=== PATIENT | male | born 1970 | race Caucasian/White ===

== ENCOUNTER 2018-06-02 21:23 | Observation (INO) | payer OTHER, MEDICARE ==
[2018-06-02 22:11] LABS: Hemoglobin 7.1 g/dL (14.0-18.0); Mean Corpuscular HGB CONC 35.1 g/dL (32.0-36.0); Mean Corpuscular Hemoglobin 28.9 pg (27.0-31.0); Mean Corpuscular Volume 82.2 fL (78.0-98.0); Platelet Count 14 thou/uL (130-400); RBC Distribution Width 12.7 % (11.5-14.5); Red Blood Cell (RBC) Count 2.47 mill/uL (4.70-6.10); Reflex for Review?? YES; White Blood Cell (WBC) Count 0.5 thou/uL (4.8-10.8)
--- NOTE | 2018-06-02 22:24 | RAD ---
AP VIEW CHEST: 06/02/18 HISTORY: Shortness of breath. Patient with history of leukemia. AP view chest is obtained on 06/02/18. The lungs are well aerated. No evidence of active intrathoracic disease seen. No evidence of effusio ns, pneumonia or pneumothorax seen. Right upper extremity PICC line is seen in place. IMPRESSION: Unremarkable AP view chest. POS: [facility]
[2018-06-02 22:45] LABS: ALT (SGPT) 9 U/L (8-55); AST (SGOT) 7 U/L (5-34); Albumin 3.8 g/dL (3.5-5.0); Alkaline Phosphatase 123 U/L (40-150); Anion Gap 12 mmol/L (10-20); BUN (Urea Nitrogen) 10 mg/dL (8.9-20.6); Bilirubin, Total 0.4 mg/dL (0.2-1.2); Calc. Creatinine Clearance 0 mL/min (70-130); Carbon Dioxide 20 mmol/L (22-29); Chloride 107 mmol/L (98-107); Estimated GFR-MDRD Greater than 90; Globulin 2.5 g/dL (2.4-3.5); Glucose 116 mg/dL (70-105); Potassium 3.6 mmol/L (3.5-5.1); Protein, Total 6.3 g/dL (6.0-8.3); Sodium 135 mmol/L (136-145)
[2018-06-02] MEDS ORDERED: Ondansetron ODT 4 MG TAB PO PRN (23:37)
[2018-06-02] MEDS ORDERED: Voriconazole 50 MG TAB PO SCH (23:45)
[2018-06-02] MEDS ORDERED: carBAMazepine SR 300 mg Capsule PO SCH (23:45)
[2018-06-02] MEDS ORDERED: levETIRAcetam 500 MG TAB PO SCH (23:45)
[2018-06-02] MEDS ORDERED: Cyclobenzaprine 10 MG TAB PO SCH (23:45)
[2018-06-02] MEDS ORDERED: Allopurinol 300 MG TAB PO SCH (23:45)
[2018-06-02] MEDS ORDERED: valACYclovir 500 MG TAB PO SCH (23:45)
[2018-06-02] MEDS ORDERED: Topiramate 100 MG TAB PO SCH (23:45)
[2018-06-02] MEDS ORDERED: Citalopram 20 MG TAB PO SCH (23:45)
[2018-06-03] MEDS ORDERED: Senokot S 8.6-50 MG TAB PO PRN (00:26)
[2018-06-03] MEDS ORDERED: Calcium Carbonate 500 MG ChewTAB PO PRN (00:26)
[2018-06-03] MEDS ORDERED: Acetaminophen 325 MG TAB PO PRN (00:26)
--- NOTE | 2018-06-03 01:57 | HP ---
The patient was seen and examined on June 03, 2018. PRIMARY CARE PHYSICIAN: Out of [facility]. CHIEF COMPLAINT: Generalized weakness. HISTORY OF PRESENT ILLNESS: The patient is a 47-year-old male with colon cancer and leukemia, currently on chemotherapy, presented to the emergency room with above complaints. The patient is from [facility]. He was attending a wedding here. Over the last 24 hours, the patient has been feeling generally weak and fatigued. He also had some dry cough without significant production. He also had cold intolerance. He denies any petechiae, purpura, or fall. No fever or chills reported. No nausea, vomiting, diarrhea, or altered mentation reported. In the emergency room, his workup was consistent with WBC 0.5, hemoglobin 7.1, and platelet count of 14. Per the patient's report, his WBC counts are normally in this range. Platelets and red blood cell transfusion has been ordered in the emergency room. PAST MEDICAL HISTORY: 1. Leukemia, currently on chemotherapy. 2. History of colon cancer, status post colostomy. 3. History of TIAs. 4. Seizure disorder. 5. Depression, mild, stable. PAST SURGICAL HISTORY: 1. Colostomy. 2. Tonsillectomy. 3. PICC line placement. ALLERGIES: THE PATIENT IS ALLERGIC TO AMOXICILLIN AND MORPHINE. CURRENT HOME MEDICATIONS: Family to provide accurate list of medications. He is on several medications includin. Keppra. 2. Carbamazepine. 3. Allopurinol. 4. Valacyclovir. 5. Levaquin. 6. Citalopram. 7. Topamax. 8. Voriconazole. 9. Cyclobenzaprine. 10. Zofran. 11. Chemotherapy medications. SOCIAL HISTORY: The patient currently lives at home. He is a former smoker. Denies any alcohol or drug use. FAMILY HISTORY: Positive for diabetes mellitus type 2. REVIEW OF SYSTEMS: All other review of systems were reviewed and were found negative. PHYSICAL EXAMINATION: VITAL SIGNS: Vital signs in the emergency room showed temperature 98.4, respirations of 16, pulse of 91, blood pressure of 122/81 with O2 saturation of 100% on room air. GENERAL: A 47-year-old male, in no apparent distress. HEENT: Head, atraumatic and normocephalic. Sclerae are anicteric. Conjunctival pallor noted. No oral lesion. NECK: Supple. No JVD. No carotid bruit. LUNGS: Clear to auscultation bilaterally. No wheezing, rales, or rhonchi. HEART: S1 and S2 present. Regular rate and rhythm. No rubs or gallops appreciated. No significant murmurs. ABDOMEN: Soft, nontender. Bowel sounds are present. No rebound or guarding. No costovertebral angle tenderness. Colostomy noted. EXTREMITIES: No joint swelling or tenderness. NEUROLOGIC: Grossly nonfocal. Moves all 4 extremities. PSYCHIATRY: Alert, awake, and oriented x3. SKIN: Warm and dry. LYMPH NODES: No palpable lymph nodes in the neck. PERIPHERAL VASCULAR: Radial pulses palpable bilaterally. MUSCULOSKELETAL: No joint swelling or tenderness. LABORATORY DATA: Laboratory findings as discussed above. Chemistry showed sodium 135, potassium 3.9, chloride 107, bicarbonate 20, BUN 10, creatinine 0.81. Troponin was negative. BNP 31.1. IMAGING STUDIES: Chest x-ray by my review was negative for infiltrate. EKG by my review showed normal sinus rhythm with right bundle-branch block. IMPRESSION: 1. Generalized weakness with fatigue secondary to symptomatic anemia. 2. Thrombocytopenia with platelet of 14. 3. 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 4. Hyponatremia. 5. Mild metabolic acidosis. 6. Right bundle-branch block. 7. Seizure disorder. 8. Depression, mild, stable. 9. History of TIA, not a candidate for antiplatelet agent due to significant thrombocytopenia. 10. History of colon cancer, status post colostomy. 11. Former smoker. PLAN: The patient will be monitored as a 23-hour observation. He will receive 1 unit of PRBC as well as one pack platelet. Per the patient's report, his oncologist recommended platelet count over 30,000. His WBC count runs in this range per the patient's report. We will recheck labs in a.m. We will resume his home medications once confirmed. He is currently on Levaquin, voriconazole, as well as valacyclovir for prophylaxis. The patient can probably be discharged in the morning after his blood work check. He will also benefit from a basic metabolic profile as outpatient. Job ID: [id number]
[2018-06-03 08:10] LABS: Hemoglobin 7.9 g/dL (14.0-18.0); Mean Corpuscular HGB CONC 36.2 g/dL (32.0-36.0); Mean Corpuscular Hemoglobin 30.4 pg (27.0-31.0); Mean Corpuscular Volume 83.8 fL (78.0-98.0); RBC Distribution Width 13.1 % (11.5-14.5)
[2018-06-03] MEDS ORDERED: Ondansetron ODT 8 MG TAB PO PRN ×2 (08:13→09:00)
[2018-06-03 08:36] LABS: Mean Platelet Volume 9.9 fL (7.4-10.4); Platelet Count 30 thou/uL (130-400); White Blood Cell (WBC) Count 0.4 thou/uL (4.8-10.8)
[2018-06-03] MEDS ORDERED: carBAMazepine 200 MG TAB PO SCH ×2 (09:00)
[2018-06-03] MEDS ORDERED: DEFERASIROX PO SCH ×2 (09:00)
[2018-06-03] MEDS ORDERED: VENETOCLAX 100 MG PO SCH ×2 (09:00)
[2018-06-03] MEDS ORDERED: levETIRAcetam 500 MG TAB PO SCH ×2 (09:00)
[2018-06-03] MEDS ORDERED: Topiramate 100 MG TAB PO SCH (09:00)
[2018-06-03] MEDS ORDERED: Docusate 100 MG CAP PO SCH ×2 (09:00)
[2018-06-03] MEDS ORDERED: Voriconazole 50 MG TAB PO SCH (09:00)
[2018-06-03] MEDS ORDERED: valACYclovir 500 MG TAB PO SCH (09:00)
[2018-06-03] MEDS ORDERED: Citalopram 20 MG TAB PO SCH (09:00)
[2018-06-03] MEDS ORDERED: Allopurinol 300 MG TAB PO SCH (09:00)
[2018-06-03] MEDS ORDERED: Cyclobenzaprine 10 MG TAB PO SCH (09:00)
[2018-06-03 12:11] VITALS: BP 96/62; TEMP 97.5
--- NOTE | 2018-06-03 18:11 | DIS ---
DATE OF ADMISSION: 06/03/2018 DATE OF DISCHARGE: 06/03/2018 CONDITION AT THE TIME OF DISCHARGE: Stable and improved. PRIMARY CARE PHYSICIAN: Out of town in [place], [place]. DISCHARGE DISPOSITION: Home. DISCHARGE DIAGNOSES: 1. Generalized weakness with fatigue secondary to symptomatic anemia. 2. Anemia secondary to cancer chemotherapy. 3. Thrombocytopenia due to cancer chemotherapy. 4. Chronic leukopenia secondary to leukemia and chemotherapy. 5. Mild hyponatremia. 6. Mild metabolic acidosis. 7. Right bundle branch block. 8. History of seizure disorder. 9. History of transient ischemic attack. 10. History of colon cancer status post colostomy. 11. History of leukemia, currently on chemotherapy in [place] by Dr. Bell. DISCHARGE MEDICATION: Restart home medications. No changes were made. No new medications were prescribed. Discharge medications as follows; 1. Venclexta 100 mg p.o. b.i.d. 2. Topiramate 100 mg p.o. b.i.d. 3. Jadenu 90 mg p.o. b.i.d. 4. Zofran p.r.n. 5. Flexeril 10 mg p.o. p.r.n. 6. Voriconazole 50 mg p.o. b.i.d. 7. Dulcolax daily. 8. Citalopram 20 mg daily. 9. Valtrex 500 mg p.o. b.i.d. 10. Levofloxacin 1 tablet daily. 11. Allopurinol 300 mg daily. 12. Levetiracetam 3 tablets p.o. b.i.d. 13. Carbamazepine 3 tablets p.o. b.i.d. PROCEDURES DONE IN HOSPITAL: 1. Chest x-ray upon presentation, which is negative for any evidence of infiltrate. 2. PRBC transfusion, total of 2 units. HISTORY OF PRESENTING ILLNESS: Mr. Sanchez was admitted earlier this morning by my colleague, Dr. Dove. He is visiting out of town for vacation and was having some generalized weakness. He is a chemotherapy patient for his leukemia and is under care of Dr. Bell in [place]. Upon presentation to the emergency room, his WBC count was 0.5, hemoglobin 7.1, and platelet count of 14. He has had a chemotherapy session 10 days to 14 days prior to admission. He was admitted for further evaluation. He was otherwise hemodynamically stable. PRBC transfusion was ordered for him. Repeat labs were ordered for him. Please see admission history and physical for further details. HOSPITAL COURSE: The patient's symptoms resolve completely by the time his transfusion was done. He received total of 2 units of transfusion. His hemoglobin was 7.9 after 1 unit of transfusion and he is receiving 1 more unit after that. His WBC count remained 0.4, but his platelet count improved to 30 from 14. I discussed the discharge plan with the family and they reported that his white blood cell count has been running low since the diagnosis of leukemia. He has received some sort of WBC transfusion either in the form of Neupogen or Neulasta after his chemotherapy, but even that failed to improve his WBC count. His oncologist has told him that his WBC count always be low. The patient is not exhibiting any signs or symptoms of infection and is eager to go home and is hemodynamically stable. He has an upcoming appointment with his oncologist tomorrow in [place]. Discharge plan was discussed with the patient at this time, he feels comfortable and has no new complaints. He was seen and examined prior to discharge. PHYSICAL EXAMINATION: This morning; VITAL SIGNS: Temperature 97.5, respirations 18, pulse of 89, and blood pressure 96/62. GENERAL: No acute distress. Awake, alert, and oriented x3. CHEST: Clear to auscultation bilaterally. HEART: Rate rhythm is regular. EXTREMITIES: Free of any cyanosis, clubbing, or edema. He will be discharged after second unit of packed RBC transfusion. DISCHARGE PLAN: Discharge plan was discussed with the patient and family, who verbalized understanding. Job ID: [id number]
== END 2018-06-03 13:39 | disposition home or self-care (01) ==
LOC: ERS 21:23 → T4-A 06-03 00:07
PROVIDERS: ADMIT Internal Medicine; ATTEND Internal Medicine
DX: D64.81 Anemia due to antineoplastic chemotherapy (principal); D69.59 Other secondary thrombocytopenia; T45.1X5A Adverse effect of antineoplastic and immunosuppressive drugs, initial encounter; E87.1 Hypo-osmolality and hyponatremia; E87.2 Acidosis; I45.10 Unspecified right bundle-branch block; G40.909 Epilepsy, unspecified, not intractable, without status epilepticus; F32.9 Major depressive disorder, single episode, unspecified; C95.90 Leukemia, unspecified not having achieved remission; Z85.038 Personal history of other malignant neoplasm of large intestine; Z86.73 Personal history of transient ischemic attack (TIA), and cerebral infarction without residual deficits; Z87.891 Personal history of nicotine dependence; Z79.2 Long term (current) use of antibiotics; Z79.899 Other long term (current) drug therapy; Z88.0 Allergy status to penicillin; Z88.5 Allergy status to narcotic agent; Z93.3 Colostomy status
CPT/HCPCS: 36430; 71045; 80053; 83880; 84484; 85007; 85025; 85027; 85060; 86850; 86900; 86901; 93005; G0378; P9016; P9035